=== PATIENT | male | born 1950 | race Caucasian/White ===

== ENCOUNTER → 2017-01-21 | Outpatient (CLI) | payer OTHER ==
[~2017-01-21] MED LIST: ACET-709 PO; AMOX1TAB64 PO; ASPI-515 PO; FAMO20TA7 PO; HYDR2TAB29 PO; Lopressor PO; METO25TA35 PO; METO25TA91 PO; METR500T PO; OMNIPAQUE 350 MG/ML, 100ML BOTTLE ONE; ONDA4TAB10 PO; ONDA4TAB7 PO; OXYC5CAP2 PO; OXYC5TAB3 PO; PREDNISONE EYE; RIVA20TA PO; TOBR5DRO2 EACHEYE
== END | disposition home or self-care (01) ==
LOC: CFH 09:02
PROVIDERS: ATTEND Surgery
DX: J44.9 Chronic obstructive pulmonary disease, unspecified (principal); I25.10 Atherosclerotic heart disease of native coronary artery without angina pectoris; C18.0 Malignant neoplasm of cecum; K76.89 Other specified diseases of liver; D17.9 Benign lipomatous neoplasm, unspecified
CPT/HCPCS: 71260; 74177; Q9967

== ENCOUNTER → 2017-06-17 | Outpatient (CLI) | payer OTHER ==
[~2017-06-17] MED LIST changes: -OMNIPAQUE 350 MG/ML, 100ML BOTTLE ONE; +REGADENOSON 0.4 MG/5 ML SYRINGE ONE
== END ==
LOC: CFH 07:39
PROVIDERS: ATTEND Nurse Practitioner Family
DX: I21.29 ST elevation (STEMI) myocardial infarction involving other sites (principal); I48.0 Paroxysmal atrial fibrillation
CPT/HCPCS: 78452; 93017; A9502; J2785

== ENCOUNTER 2017-07-08 07:26 | Day surgery (SDC) | payer OTHER ==
[~2017-07-08] VITALS: Ht 188 cm; Wt 98.2 kg
[~2017-07-08 07:26] MED LIST changes: -REGADENOSON 0.4 MG/5 ML SYRINGE ONE
[2017-07-08 08:14] VITALS: BP 133/91
[2017-07-08] MEDS ORDERED: DIGO125T PO (08:18)
[2017-07-08] MEDS ORDERED: VERAPAMIL 2.5 MG/ML, 2ML ONE (09:38)
[2017-07-08] MEDS ORDERED: MIDAZOLAM 1 MG/ML, 5ML ONE (09:38)
[2017-07-08] MEDS ORDERED: TICAGRELOR 90 MG TABLET ONE (09:38)
[2017-07-08] MEDS ORDERED: FENTANYL PF 100 MCG/2ML ONE (09:38)
[2017-07-08] MEDS ORDERED: BIVALIRUDIN 250 MG ONE (09:38)
[2017-07-08] MEDS ORDERED: LIDOCAINE 2%, 2ML ONE (09:39)
[2017-07-08] MEDS ORDERED: HEPARIN 1,000 UNITS/ML, 10ML ONE (09:39)
== END 2017-07-08 14:00 ==
LOC: CACL 07:26
PROVIDERS: ATTEND Internal Medicine Cardiovascular Disease
DX: I25.10 Atherosclerotic heart disease of native coronary artery without angina pectoris (principal)
CPT/HCPCS: 93458; 99156; 99157; C1894; J1644; J2250; J3010; J3490; Q9967; J0583

== ENCOUNTER 2018-10-30 07:44 | Outpatient (CLI) | payer OTHER ==
[~2018-10-30 07:44] MED LIST changes: +DIGO125T PO
== END 2018-10-30 23:59 | disposition home or self-care (01) ==
LOC: CVU 07:44
PROVIDERS: ATTEND Internal Medicine Cardiovascular Disease
DX: I08.8 Other rheumatic multiple valve diseases (principal); I48.91 Unspecified atrial fibrillation; Z95.0 Presence of cardiac pacemaker
CPT/HCPCS: 0399T; 93306

== ENCOUNTER 2019-07-19 10:24 | Day surgery (SDC) | payer OTHER ==
[~2019-07-19] VITALS: Ht 188 cm; Wt 95.0 kg
[~2019-07-19 10:24] MED LIST changes: -DIGO125T PO; +DIGO125T85 PO
[2019-07-19] MEDS ORDERED: DRON400T PO (10:50)
[2019-07-19] MEDS ORDERED: SODIUM CHLORIDE 0.9% 1,000 ML IV ONE (11:00)
[2019-07-19] MEDS ORDERED: PROPOFOL 10 MG/ML, 20ML ONE (12:38)
== END 2019-07-19 14:06 | disposition home or self-care (01) ==
LOC: CACL 10:24
PROVIDERS: ATTEND Internal Medicine Cardiovascular Disease
DX: I34.0 Nonrheumatic mitral (valve) insufficiency (principal); I48.0 Paroxysmal atrial fibrillation; Z79.82 Long term (current) use of aspirin; Z79.899 Other long term (current) drug therapy; Z95.0 Presence of cardiac pacemaker
CPT/HCPCS: 93312; 93321; 93325; J2704; U0001

== ENCOUNTER → 2020-01-02 | Outpatient (CLI) | payer OTHER ==
[~2020-01-02] MED LIST changes: +DRON400T PO
== END | disposition home or self-care (01) ==
LOC: CFH 15:45
PROVIDERS: ATTEND Nurse Practitioner Family
DX: I08.3 Combined rheumatic disorders of mitral, aortic and tricuspid valves (principal)
CPT/HCPCS: 93306

== ENCOUNTER 2020-01-24 09:07 | Inpatient (IN) | payer OTHER, MEDICARE ==
[~2020-01-24] VITALS: Ht 188 cm; Wt 97.0 kg
--- NOTE | 2020-01-24 10:13 | NUR ---
LLQ ABD PAIN SINCE YESTERDAY WITH HX OF MULTIPLE ABDOMINAL SURGERIES FOR PERFORATIONS AND TUMORS. LAST BM YESTERDAY AND WAS NORMAL. Unable to have bm this Am
[2020-01-24] MEDS ORDERED: PRED5DRO20 OP (10:19)
[2020-01-24 10:21] LABS: BASOPHILS % (AUTO) 0 % (0-1); EOSINOPHILS % (AUTO) 0 % (1-7); LYMPHOCYTES % (AUTO) 4 % (22-44); MEAN CORPUSCULAR HEMOGLOBIN 31.5 pg (27.5-34.5); MEAN CORPUSCULAR HGB CONC 34.1 g/dL (33.2-36.2); MEAN PLATELET VOLUME 8.3 fL (7.4-10.4); MONOCYTES % (AUTO) 3 % (2-9); NEUTROPHILS % (AUTO) 93 % (42-75); PLATELET COUNT 160 x10^3/uL (130-400); RED BLOOD COUNT 5.46 x10^6/uL (4.38-5.82); RED CELL DISTRIBUTION WIDTH 13.1 % (9.4-14.8)
[2020-01-24 10:27] LABS: MD NO
[2020-01-24] MEDS ORDERED: HYDROmorphone 2 MG/ML, 1ML IVPush PRN (10:30)
[2020-01-24] MEDS ORDERED: SODIUM CHLORIDE FLUSH 10ML SYR IVF ONE (10:30)
[2020-01-24] MEDS ORDERED: ONDANSETRON 2MG/ML, 2ML IVPush ONE (10:30)
[2020-01-24] MEDS ORDERED: ONDANSETRON 2MG/ML, 2ML ONE (10:37)
[2020-01-24] MEDS ORDERED: HYDROmorphone 1 MG/ML, 1ML INJ ONE (10:37)
[2020-01-24 10:40] LABS: ANION GAP 6 mmol/L (5-15); CALCIUM 9.7 mg/dL (8.5-10.1); CHLORIDE 105 mmol/L (98-107)
[2020-01-24 10:41] LABS: ALANINE AMINOTRANSFERASE 34 U/L (12-78); ALBUMIN 4.2 g/dL (3.4-5.0); ALKALINE PHOSPHATASE 86 U/L (45-117); BILIRUBIN,TOTAL 1.1 mg/dL (0.2-1.0); CREATININE 1.28 mg/dL (0.7-1.3); TOTAL PROTEIN 7.5 g/dL (6.4-8.2)
--- NOTE | 2020-01-24 10:42 | NUR ---
piv placed-then medicated per emar for nausea/pain at 08/14 placed on 2l nc as precaution d/t narcotics
--- NOTE | 2020-01-24 10:55 | NUR ---
RECEIVED REPORT FROM TY ARRIETA. ASSUMING CARE AT THIS TIME.
--- NOTE | 2020-01-24 10:56 | NUR ---
REPORT TO CHRISTY ARRIETA
[2020-01-24 11:12] LABS: MICROSCOPIC AUTO
--- NOTE | 2020-01-24 11:57 | NUR ---
MEDS ADMIN PER MAY.
[2020-01-24] MEDS ORDERED: LACTATED RINGERS 1,000 ML IV SCH (12:00)
[2020-01-24] MEDS ORDERED: OMNIPAQUE 350 MG/ML, 100ML BOTTLE ONE (12:02)
--- NOTE | 2020-01-24 12:23 | NUR ---
NG TUBE PLACED IN RIGHT NARE. PT TOLERATED WELL. CONNECTED TO LOW CONTINUOUS SUCTION. VERIFIED BY AUSCULATION,.
--- NOTE | 2020-01-24 12:48 | NUR ---
NO GASTRIC CONTENT HAS BEEN SUCTIONED FROM NG TUBE. HOSPITALIST AT BEDSIDE. VO RECEIVED FOR ABD XRAY TO VERIFY PLACEMENT. REPORT GIVEN TO CHRISTY ARRIETA.
[2020-01-24 13:49] VITALS: BP 137/83
[2020-01-24] MEDS ORDERED: BISACODYL 10 MG SUPP PR PRN (14:30)
[2020-01-24] MEDS ORDERED: POLYETHYLENE GLYCOL 17 GM PACKET PO PRN (14:30)
[2020-01-24] MEDS: LACTATED RINGERS 1,000 ML IV SCH (14:35)
[2020-01-24] MEDS: morphine SULFATE 10 MG/ML, 1ML IVPush PRN ×3 (14:36→21:14)
[2020-01-24] MEDS: ONDANSETRON 2MG/ML, 2ML IVPush PRN (14:36)
[2020-01-24] MEDS: DRONEDARONE 400MG TABLET PO SCH (17:24)
[2020-01-24 19:06] VITALS: BP 131/87
[2020-01-24] MEDS: METOPROLOL TARTRATE 50 MG TAB PO SCH (21:08)
[2020-01-24] MEDS: METOCLOPRAMIDE 5 MG/ML, 2ML IVPush PRN (21:14)
[2020-01-25 00:38] VITALS: BP 137/91
[2020-01-25] MEDS: ONDANSETRON 2MG/ML, 2ML IVPush PRN (00:51)
[2020-01-25] MEDS: morphine SULFATE 10 MG/ML, 1ML IVPush PRN ×2 (00:51→03:59)
[2020-01-25] MEDS: METOCLOPRAMIDE 5 MG/ML, 2ML IVPush PRN (03:59)
[2020-01-25] MEDS: LACTATED RINGERS 1,000 ML IV SCH (05:12)
[2020-01-25] MEDS ORDERED: FENTANYL PF 250 MCG/5ML ONE (07:05)
[2020-01-25] MEDS ORDERED: MIDAZOLAM 1 MG/ML, 2ML ONE (07:05)
[2020-01-25] MEDS ORDERED: SCOPOLAMINE 1MG PATCH TD ONE (07:18)
[2020-01-25] MEDS ORDERED: KETOROLAC 30 MG/1 ML IV PRN (08:00)
[2020-01-25] MEDS ORDERED: ONDANSETRON 2MG/ML, 2ML IVPush PRN (08:00)
[2020-01-25] MEDS ORDERED: PROMETHAZINE 25 MG/ML, 1ML IV PRN (08:00)
[2020-01-25] MEDS ORDERED: LABETALOL 5MG/ML, 20ML IV PRN (08:00)
[2020-01-25] MEDS ORDERED: DIAZEPAM 5 MG/ML, 2ML IV PRN ×2 (08:00)
[2020-01-25] MEDS ORDERED: HYDROmorphone 1 MG/ML, 1ML INJ IV PRN (08:00)
[2020-01-25] MEDS ORDERED: hydrALAzine 20 MG/ML, 1ML IV PRN (08:00)
[2020-01-25] MEDS ORDERED: METOCLOPRAMIDE 5 MG/ML, 2ML IV PRN (08:00)
[2020-01-25] MEDS: DRONEDARONE 400MG TABLET PO SCH ×2 (08:00→17:01)
[2020-01-25] MEDS ORDERED: ALBUTEROL SULFATE 2.5 MG/3 ML NPPB PRN (08:00)
[2020-01-25] MEDS ORDERED: OXYcodone 5 MG/5 ML ORAL.SOL UDC PO PRN (08:00)
[2020-01-25] MEDS ORDERED: MEPERIDINE/PF 25MG/0.5ML IVPush PRN (08:00)
[2020-01-25] MEDS ORDERED: FENTANYL PF 100 MCG/2ML ONE (08:48)
[2020-01-25] MEDS: FENTANYL PF 100 MCG/2ML IV PRN ×2 (08:49→08:57)
[2020-01-25] MEDS: METOPROLOL TARTRATE 50 MG TAB PO SCH ×2 (09:00→21:16)
[2020-01-25] MEDS: SENNA/DOCUSATE TABLET PO SCH (09:00)
[2020-01-25] MEDS: predniSOLONE OPHTH. 1%,1ML OP SCH (09:00)
[2020-01-25] MEDS: POTASSIUM CHLORIDE 20 MEQ in D5%-0.45% NACL 1,000 ML IV SCH ×2 (12:27→21:17)
[2020-01-25 12:30] VITALS: BP 116/64
[2020-01-25 12:34] LABS: ALANINE AMINOTRANSFERASE 22 U/L (12-78); ANION GAP 4 mmol/L (5-15); CALCIUM 8.6 mg/dL (8.5-10.1); CHLORIDE 109 mmol/L (98-107); CREATININE 1.08 mg/dL (0.7-1.3)
[2020-01-25 12:36] LABS: ALKALINE PHOSPHATASE 62 U/L (45-117); BILIRUBIN,TOTAL 0.8 mg/dL (0.2-1.0); TOTAL PROTEIN 5.6 g/dL (6.4-8.2)
[2020-01-25 13:07] LABS: BASOPHILS % (AUTO) 1 % (0-1); EOSINOPHILS % (AUTO) 1 % (1-7); LYMPHOCYTES % (AUTO) 9 % (22-44); MEAN CORPUSCULAR HEMOGLOBIN 31.5 pg (27.5-34.5); MEAN CORPUSCULAR HGB CONC 33.7 g/dL (33.2-36.2); MEAN PLATELET VOLUME 8.9 fL (7.4-10.4); MONOCYTES % (AUTO) 9 % (2-9); NEUTROPHILS % (AUTO) 81 % (42-75); PLATELET COUNT 130 x10^3/uL (130-400); RED CELL DISTRIBUTION WIDTH 13.2 % (9.4-14.8)
[2020-01-25 13:08] LABS: MD NO
[2020-01-25] MEDS: morphine SULFATE 10 MG/ML, 1ML IV PRN ×4 (14:38→23:11)
[2020-01-25] MEDS ORDERED: SUGAMMADEX 200 MG/2 ML IVPush ONE (16:32)
[2020-01-25] MEDS ORDERED: KETOROLAC 30 MG/1 ML ONE (16:32)
[2020-01-25] MEDS ORDERED: ROCURONIUM 10MG/ML,5ML ONE (16:32)
[2020-01-25] MEDS ORDERED: PROPOFOL 10 MG/ML, 20ML ONE (16:32)
[2020-01-25] MEDS ORDERED: CEFAZOLIN 1,000 MG ONE (16:32)
[2020-01-25] MEDS ORDERED: SUCCINYLCHOLINE 20 MG/ML, 10ML ONE (16:32)
[2020-01-25] MEDS ORDERED: DEXAMETHASONE 4 MG/ML, 1ML ONE (16:32)
[2020-01-25] MEDS ORDERED: ONDANSETRON 2MG/ML, 2ML ONE (16:32)
[2020-01-25] MEDS: ENOXAPARIN 40 MG/0.4 ML SQ SCH (18:15)
[2020-01-25 18:49] VITALS: BP 103/68
[2020-01-25] MEDS: CEFOTETAN PMX 1GM/50ML 50 ML IVPB SCH (21:49)
[2020-01-26 00:15] VITALS: BP 99/67
[2020-01-26 04:34] VITALS: BP 101/69
[2020-01-26] MEDS: POTASSIUM CHLORIDE 20 MEQ in D5%-0.45% NACL 1,000 ML IV SCH (05:25)
[2020-01-26] MEDS: morphine SULFATE 10 MG/ML, 1ML IV PRN ×3 (05:25→16:03)
[2020-01-26 05:54] LABS: BASOPHILS % (AUTO) 1 % (0-1); EOSINOPHILS % (AUTO) 0 % (1-7); LYMPHOCYTES % (AUTO) 11 % (22-44); MEAN CORPUSCULAR HEMOGLOBIN 31.9 pg (27.5-34.5); MEAN CORPUSCULAR HGB CONC 33.8 g/dL (33.2-36.2); MEAN PLATELET VOLUME 8.3 fL (7.4-10.4); MONOCYTES % (AUTO) 11 % (2-9); NEUTROPHILS % (AUTO) 77 % (42-75); PLATELET COUNT 142 x10^3/uL (130-400); RED BLOOD COUNT 4.86 x10^6/uL (4.38-5.82); RED CELL DISTRIBUTION WIDTH 13.2 % (9.4-14.8)
[2020-01-26 05:55] LABS: MD NO
[2020-01-26 06:06] LABS: ANION GAP 5 mmol/L (5-15); CALCIUM 8.6 mg/dL (8.5-10.1); CHLORIDE 107 mmol/L (98-107)
[2020-01-26 06:12] LABS: ALANINE AMINOTRANSFERASE 18 U/L (12-78); ALKALINE PHOSPHATASE 62 U/L (45-117); BILIRUBIN,TOTAL 1.2 mg/dL (0.2-1.0); CREATININE 1.46 mg/dL (0.7-1.3); TOTAL PROTEIN 6.2 g/dL (6.4-8.2)
[2020-01-26 06:39] VITALS: BP 109/73
[2020-01-26] MEDS: DRONEDARONE 400MG TABLET PO SCH ×2 (09:19→16:04)
[2020-01-26] MEDS: METOPROLOL TARTRATE 50 MG TAB PO SCH ×2 (09:19→19:54)
[2020-01-26] MEDS: SENNA/DOCUSATE TABLET PO SCH (09:19)
[2020-01-26] MEDS: ASPIRIN 81 MG TABLET CHEW PO SCH (09:19)
[2020-01-26] MEDS: CEFOTETAN PMX 1GM/50ML 50 ML IVPB SCH (09:19)
[2020-01-26] MEDS: predniSOLONE OPHTH. 1%,1ML OP SCH (09:58)
[2020-01-26] MEDS: D5%-0.45% NACL 1,000 ML IV SCH (11:34)
[2020-01-26 14:32] VITALS: BP 106/64
[2020-01-26 19:42] VITALS: BP 104/73
[2020-01-26] MEDS: ENOXAPARIN 40 MG/0.4 ML SQ SCH (19:53)
[2020-01-26] MEDS: OXYcodone/APAP 5/325MG TABLET PO PRN (19:54)
[2020-01-27] MEDS: morphine SULFATE 10 MG/ML, 1ML IV PRN (00:11)
[2020-01-27] MEDS: ONDANSETRON 2MG/ML, 2ML IV PRN ×3 (02:07→20:02)
[2020-01-27] MEDS: OXYcodone/APAP 5/325MG TABLET PO PRN ×3 (02:18→20:01)
[2020-01-27] MEDS: D5%-0.45% NACL 1,000 ML IV SCH (02:18)
[2020-01-27 02:22] VITALS: BP 144/74
[2020-01-27 06:08] LABS: MEAN CORPUSCULAR HEMOGLOBIN 31.7 pg (27.5-34.5); MEAN CORPUSCULAR HGB CONC 33.7 g/dL (33.2-36.2); MEAN PLATELET VOLUME 8.4 fL (7.4-10.4); PLATELET COUNT 126 x10^3/uL (130-400); RED BLOOD COUNT 4.52 x10^6/uL (4.38-5.82); RED CELL DISTRIBUTION WIDTH 13.2 % (9.4-14.8)
[2020-01-27 06:16] LABS: ANION GAP 3 mmol/L (5-15); CALCIUM 8.8 mg/dL (8.5-10.1); CHLORIDE 105 mmol/L (98-107)
[2020-01-27 06:17] LABS: CREATININE 1.36 mg/dL (0.7-1.3)
[2020-01-27 06:51] LABS: MD YES
[2020-01-27 06:55] LABS: EOS#(MANUAL) 0.03 x10^3/uL (0.0-0.4); EOS% (MANUAL) 2 % (1-7); REACTIVE LYMPHS # (MANUAL) 0.03 x10^3/uL (0-0); REACTIVE LYMPHS % (MANUAL) 2 % (0-0)
[2020-01-27 06:58] LABS: BAND#(MANUAL) 0.69 x10^3/uL; BANDS%(MANUAL) 53 % (0-7); LYMPH#(MANUAL) 0.13 x10^3/uL (1-3.4); LYMPHS% (MANUAL) 10 % (22-44); MONOS#(MANUAL) 0.17 x10^3/uL (0.3-2.7); MONOS% (MANUAL) 13 % (2-9); SEG#(MANUAL) 0.26 x10^3/uL (1.8-6.8); SEGS% (MANUAL) 20 % (42-75)
[2020-01-27 07:00] LABS: <RBC MORPHOLOGY> NORMAL
[2020-01-27 07:01] LABS: <PLATELET ESTIMATE> DECREASED; <PLT MORPHOLOGY> NORMAL PLT MORPH
[2020-01-27 07:41] VITALS: BP 107/59
[2020-01-27] MEDS: ASPIRIN 81 MG TABLET CHEW PO SCH (08:05)
[2020-01-27] MEDS: METOPROLOL TARTRATE 50 MG TAB PO SCH ×2 (08:05→20:01)
[2020-01-27] MEDS: SENNA/DOCUSATE TABLET PO SCH (08:05)
[2020-01-27] MEDS: predniSOLONE OPHTH. 1%,1ML OP SCH (08:05)
[2020-01-27] MEDS: DRONEDARONE 400MG TABLET PO SCH ×2 (08:14→17:10)
[2020-01-27] MEDS ORDERED: PHARMACY MAY ADJ FOR RENAL FX MC PRN (09:00)
[2020-01-27] MEDS: METRONIDAZOLE PMX 500MG/100ML 100 ML IV SCH ×2 (09:30→17:10)
[2020-01-27] MEDS: SODIUM CHLORIDE 0.9% 1,000 ML IV SCH ×2 (09:31→20:02)
[2020-01-27] MEDS: CEFTRIAXONE PMX 1GM/50ML 50 ML IV SCH (10:37)
[2020-01-27] MEDS: METOCLOPRAMIDE 5 MG/ML, 2ML IVPush PRN ×2 (12:04→23:52)
[2020-01-27 14:04] VITALS: BP 105/76
[2020-01-27 19:54] VITALS: BP 126/77
[2020-01-27] MEDS: ENOXAPARIN 40 MG/0.4 ML SQ SCH (20:02)
[2020-01-28] MEDS: METRONIDAZOLE PMX 500MG/100ML 100 ML IV SCH ×4 (01:01→21:45)
[2020-01-28 01:09] VITALS: BP 143/89
[2020-01-28] MEDS: SODIUM CHLORIDE 0.9% 1,000 ML IV SCH ×2 (06:04→16:31)
[2020-01-28] MEDS: ONDANSETRON 2MG/ML, 2ML IV PRN ×3 (06:04→21:37)
[2020-01-28 06:54] LABS: CHLORIDE 103 mmol/L (98-107)
[2020-01-28 06:59] LABS: ALANINE AMINOTRANSFERASE 21 U/L (12-78); ALBUMIN 2.4 g/dL (3.4-5.0); ALKALINE PHOSPHATASE 52 U/L (45-117); ANION GAP 3 mmol/L (5-15); BILIRUBIN,TOTAL 0.9 mg/dL (0.2-1.0); CALCIUM 8.3 mg/dL (8.5-10.1); CREATININE 0.88 mg/dL (0.7-1.3); TOTAL PROTEIN 5.8 g/dL (6.4-8.2)
[2020-01-28 07:46] VITALS: BP 129/84
[2020-01-28] MEDS: SENNA/DOCUSATE TABLET PO SCH (10:33)
[2020-01-28] MEDS: METOCLOPRAMIDE 5 MG/ML, 2ML IVPush PRN ×2 (10:33→16:27)
[2020-01-28] MEDS: ASPIRIN 81 MG TABLET CHEW PO SCH (10:33)
[2020-01-28] MEDS: DRONEDARONE 400MG TABLET PO SCH ×2 (10:33→16:26)
[2020-01-28] MEDS: predniSOLONE OPHTH. 1%,1ML OP SCH (10:34)
[2020-01-28] MEDS: METOPROLOL TARTRATE 50 MG TAB PO SCH ×2 (10:34→21:00)
[2020-01-28 11:02] LABS: MEAN CORPUSCULAR HEMOGLOBIN 31.6 pg (27.5-34.5); MEAN CORPUSCULAR HGB CONC 33.7 g/dL (33.2-36.2); MEAN PLATELET VOLUME 9.1 fL (7.4-10.4); PLATELET COUNT 146 x10^3/uL (130-400); RED BLOOD COUNT 4.35 x10^6/uL (4.38-5.82); RED CELL DISTRIBUTION WIDTH 12.9 % (9.4-14.8)
[2020-01-28 11:03] LABS: MD YES
[2020-01-28 11:09] LABS: BAND#(MANUAL) 0.93 x10^3/uL; BANDS%(MANUAL) 49 % (0-7); EOS#(MANUAL) 0.08 x10^3/uL (0.0-0.4); EOS% (MANUAL) 4 % (1-7); LYMPH#(MANUAL) 0.29 x10^3/uL (1-3.4); LYMPHS% (MANUAL) 15 % (22-44); METAMYELOCYTES# (MANUAL) 0.08 x10^3/uL (0-0); METAMYELOCYTES% (MANUAL) 4 % (0-1); MONOS#(MANUAL) 0.25 x10^3/uL (0.3-2.7); MONOS% (MANUAL) 13 % (2-9); MYELOCYTES# (MANUAL) 0.02 x10^3/uL (0-0); MYELOCYTES% (MANUAL) 1 % (0-0); SEG#(MANUAL) 0.27 x10^3/uL (1.8-6.8); SEGS% (MANUAL) 14 % (42-75)
[2020-01-28 11:10] LABS: <PLATELET ESTIMATE> ADEQUATE; <PLT MORPHOLOGY> NORMAL PLT MORPH; <RBC MORPHOLOGY> NORMAL
[2020-01-28] MEDS: CEFTRIAXONE PMX 1GM/50ML 50 ML IV SCH (13:28)
[2020-01-28] MEDS: PROMETHAZINE 25 MG/ML, 1ML IM PRN ×2 (13:28→22:27)
[2020-01-28 13:53] VITALS: BP 146/83
[2020-01-28] MEDS: CALCIUM CARBONATE 500 MG TAB.CHEW PO PRN (16:26)
[2020-01-28] MEDS: OXYcodone/APAP 5/325MG TABLET PO PRN (16:27)
[2020-01-28 20:24] VITALS: BP 137/83
[2020-01-28] MEDS: MELATONIN 5 MG TABLET PO PRN (21:44)
[2020-01-28] MEDS: ENOXAPARIN 40 MG/0.4 ML SQ SCH (21:46)
[2020-01-29] MEDS: METOCLOPRAMIDE 5 MG/ML, 2ML IVPush PRN (00:32)
[2020-01-29 01:50] VITALS: BP 107/59
[2020-01-29] MEDS: ONDANSETRON 2MG/ML, 2ML IV PRN ×3 (03:07→22:12)
[2020-01-29] MEDS: SODIUM CHLORIDE 0.9% 1,000 ML IV SCH ×3 (04:32→22:10)
[2020-01-29 05:38] LABS: ANION GAP 8 mmol/L (5-15); CALCIUM 8.6 mg/dL (8.5-10.1); CHLORIDE 101 mmol/L (98-107); CREATININE 0.78 mg/dL (0.7-1.3)
[2020-01-29 05:40] LABS: MEAN CORPUSCULAR HEMOGLOBIN 31.7 pg (27.5-34.5); MEAN CORPUSCULAR HGB CONC 34.4 g/dL (33.2-36.2); MEAN PLATELET VOLUME 9.1 fL (7.4-10.4); PLATELET COUNT 178 x10^3/uL (130-400); RED BLOOD COUNT 4.57 x10^6/uL (4.38-5.82); RED CELL DISTRIBUTION WIDTH 13.1 % (9.4-14.8)
[2020-01-29] MEDS: METRONIDAZOLE PMX 500MG/100ML 100 ML IV SCH ×3 (05:56→22:10)
[2020-01-29 06:14] VITALS: BP 169/99
[2020-01-29 06:14] LABS: MD YES
[2020-01-29 06:17] LABS: <PLATELET ESTIMATE> ADEQUATE; <PLT MORPHOLOGY> NORMAL PLT MORPH; <RBC MORPHOLOGY> NORMAL; BAND#(MANUAL) 0.65 x10^3/uL; BANDS%(MANUAL) 18 % (0-7); LYMPHS% (MANUAL) 11 % (22-44); METAMYELOCYTES# (MANUAL) 0.04 x10^3/uL (0-0); METAMYELOCYTES% (MANUAL) 1 % (0-1); MONOS#(MANUAL) 0.29 x10^3/uL (0.3-2.7); MONOS% (MANUAL) 8 % (2-9); SEG#(MANUAL) 2.23 x10^3/uL (1.8-6.8); SEGS% (MANUAL) 62 % (42-75)
[2020-01-29] MEDS: OXYcodone/APAP 5/325MG TABLET PO PRN ×2 (09:05→22:12)
[2020-01-29] MEDS: ASPIRIN 81 MG TABLET CHEW PO SCH (09:05)
[2020-01-29] MEDS: SENNA/DOCUSATE TABLET PO SCH (09:05)
[2020-01-29] MEDS: METOPROLOL TARTRATE 50 MG TAB PO SCH ×2 (09:06→22:09)
[2020-01-29] MEDS: DRONEDARONE 400MG TABLET PO SCH ×2 (09:07→17:17)
[2020-01-29] MEDS: predniSOLONE OPHTH. 1%,1ML OP SCH (09:09)
[2020-01-29 10:17] VITALS: BP 148/68
[2020-01-29] MEDS: CALCIUM CARBONATE 500 MG TAB.CHEW PO PRN (12:43)
[2020-01-29] MEDS: CEFTRIAXONE PMX 1GM/50ML 50 ML IV SCH (12:43)
[2020-01-29 13:32] VITALS: BP 155/99
[2020-01-29 19:31] VITALS: BP 149/92
[2020-01-29] MEDS: ENOXAPARIN 40 MG/0.4 ML SQ SCH (22:09)
[2020-01-29] MEDS: DIPHENHYDRAMINE 25 MG CAPSULE PO PRN (22:12)
[2020-01-29] MEDS: MELATONIN 5 MG TABLET PO PRN (22:12)
[2020-01-30 00:57] VITALS: BP 147/108
[2020-01-30 01:07] VITALS: BP 160/97
[2020-01-30] MEDS: CALCIUM CARBONATE 500 MG TAB.CHEW PO PRN ×3 (03:00→20:47)
[2020-01-30 06:00] LABS: MEAN CORPUSCULAR HEMOGLOBIN 31.1 pg (27.5-34.5); MEAN CORPUSCULAR HGB CONC 33.4 g/dL (33.2-36.2); MEAN PLATELET VOLUME 8.5 fL (7.4-10.4); PLATELET COUNT 190 x10^3/uL (130-400); RED BLOOD COUNT 4.69 x10^6/uL (4.38-5.82); RED CELL DISTRIBUTION WIDTH 13.2 % (9.4-14.8)
[2020-01-30] MEDS: METRONIDAZOLE PMX 500MG/100ML 100 ML IV SCH ×3 (06:05→22:27)
[2020-01-30 06:11] LABS: ANION GAP 8 mmol/L (5-15); CALCIUM 8.6 mg/dL (8.5-10.1); CHLORIDE 102 mmol/L (98-107); CREATININE 0.92 mg/dL (0.7-1.3)
[2020-01-30 06:22] LABS: BAND#(MANUAL) 1.15 x10^3/uL; BANDS%(MANUAL) 31 % (0-7); LYMPH#(MANUAL) 0.44 x10^3/uL (1-3.4); LYMPHS% (MANUAL) 12 % (22-44); MD YES; MONOS#(MANUAL) 0.52 x10^3/uL (0.3-2.7); MONOS% (MANUAL) 14 % (2-9); SEG#(MANUAL) 1.52 x10^3/uL (1.8-6.8); SEGS% (MANUAL) 41 % (42-75)
[2020-01-30 06:23] LABS: <PLATELET ESTIMATE> ADEQUATE; <PLT MORPHOLOGY> NORMAL PLT MORPH; <RBC MORPHOLOGY> NORMAL; BASOS#(MANUAL) 0.04 x10^3/uL (0-0.1); BASOS% (MANUAL) 1 % (0-1); METAMYELOCYTES# (MANUAL) 0.04 x10^3/uL (0-0); METAMYELOCYTES% (MANUAL) 1 % (0-1)
[2020-01-30] MEDS: NS + 20MEQ KCL 1,000 ML IV SCH (07:30)
[2020-01-30 07:40] VITALS: BP 145/99
[2020-01-30 08:00] VITALS: BP 145/99
[2020-01-30] MEDS: DRONEDARONE 400MG TABLET PO SCH ×2 (08:00→16:04)
[2020-01-30] MEDS: predniSOLONE OPHTH. 1%,1ML OP SCH (09:00)
[2020-01-30] MEDS: SENNA/DOCUSATE TABLET PO SCH (09:00)
[2020-01-30] MEDS: ASPIRIN 81 MG TABLET CHEW PO SCH (09:00)
[2020-01-30] MEDS: METOPROLOL TARTRATE 50 MG TAB PO SCH ×2 (09:00→20:47)
[2020-01-30 14:00] VITALS: BP 150/99
[2020-01-30] MEDS: CEFTRIAXONE PMX 1GM/50ML 50 ML IV SCH (14:00)
[2020-01-30] MEDS: OXYcodone/APAP 5/325MG TABLET PO PRN ×2 (16:10→22:27)
[2020-01-30 19:02] VITALS: BP 144/104
[2020-01-30] MEDS: ENOXAPARIN 40 MG/0.4 ML SQ SCH (20:48)
[2020-01-30] MEDS: DIPHENHYDRAMINE 25 MG CAPSULE PO PRN (20:48)
[2020-01-30] MEDS: ONDANSETRON 2MG/ML, 2ML IV PRN (20:57)
[2020-01-30] MEDS: morphine SULFATE 10 MG/ML, 1ML IV PRN (20:59)
[2020-01-31] MEDS: NS + 20MEQ KCL 1,000 ML IV SCH ×2 (00:14→14:04)
[2020-01-31 00:38] VITALS: BP 154/102
[2020-01-31] MEDS: OXYcodone/APAP 5/325MG TABLET PO PRN ×2 (05:17→22:58)
[2020-01-31 05:37] LABS: BASOPHILS % (AUTO) 0 % (0-1); EOSINOPHILS % (AUTO) 1 % (1-7); LYMPHOCYTES % (AUTO) 10 % (22-44); MEAN CORPUSCULAR HEMOGLOBIN 31.5 pg (27.5-34.5); MEAN PLATELET VOLUME 8.5 fL (7.4-10.4); MONOCYTES % (AUTO) 12 % (2-9); NEUTROPHILS % (AUTO) 77 % (42-75); PLATELET COUNT 216 x10^3/uL (130-400); RED BLOOD COUNT 4.79 x10^6/uL (4.38-5.82); RED CELL DISTRIBUTION WIDTH 13.2 % (9.4-14.8)
[2020-01-31 05:39] LABS: MD NO
[2020-01-31 05:43] LABS: ANION GAP 6 mmol/L (5-15); CALCIUM 8.3 mg/dL (8.5-10.1); CHLORIDE 102 mmol/L (98-107); CREATININE 0.85 mg/dL (0.7-1.3)
[2020-01-31] MEDS: METRONIDAZOLE PMX 500MG/100ML 100 ML IV SCH ×3 (06:30→22:56)
[2020-01-31 07:04] VITALS: BP 150/85
[2020-01-31] MEDS: predniSOLONE OPHTH. 1%,1ML OP SCH (09:14)
[2020-01-31] MEDS: SENNA/DOCUSATE TABLET PO SCH (09:15)
[2020-01-31] MEDS: METOPROLOL TARTRATE 50 MG TAB PO SCH ×2 (09:15→22:58)
[2020-01-31] MEDS: ASPIRIN 81 MG TABLET CHEW PO SCH (09:15)
[2020-01-31] MEDS: DRONEDARONE 400MG TABLET PO SCH ×2 (09:15→16:51)
[2020-01-31] MEDS: CEFTRIAXONE PMX 1GM/50ML 50 ML IV SCH (12:30)
[2020-01-31 12:37] VITALS: BP 137/86
[2020-01-31 20:15] VITALS: BP 146/86
[2020-01-31] MEDS: ENOXAPARIN 40 MG/0.4 ML SQ SCH (22:57)
[2020-02-01 02:42] VITALS: BP 159/80
[2020-02-01] MEDS: CALCIUM CARBONATE 500 MG TAB.CHEW PO PRN (02:50)
[2020-02-01] MEDS: METRONIDAZOLE PMX 500MG/100ML 100 ML IV SCH (06:57)
[2020-02-01] MEDS: NS + 20MEQ KCL 1,000 ML IV SCH (06:58)
[2020-02-01 07:58] VITALS: BP 148/82
[2020-02-01] MEDS: predniSOLONE OPHTH. 1%,1ML OP SCH (08:59)
[2020-02-01] MEDS: ASPIRIN 81 MG TABLET CHEW PO SCH (09:00)
[2020-02-01] MEDS: DRONEDARONE 400MG TABLET PO SCH (09:00)
[2020-02-01] MEDS: METOPROLOL TARTRATE 50 MG TAB PO SCH (09:00)
[2020-02-01] MEDS: SENNA/DOCUSATE TABLET PO SCH (09:00)
[2020-02-01] MEDS ORDERED: METR500T PO (11:38)
[2020-02-01] MEDS ORDERED: CEFD300C37 PO (11:38)
[2020-02-01] MEDS ORDERED: POLY17PO5 PO (11:38)
[2020-02-01] MEDS ORDERED: OXYC-302 PO (12:28)
[2020-02-01] MEDS: CEFTRIAXONE PMX 1GM/50ML 50 ML IV SCH (12:31)
[2020-02-01 12:42] VITALS: BP_SYST 118; BP_SYST 148; BP_DIAS 64
[2020-02-01] MEDS ORDERED: LISINOPRIL 10 MG TABLET PO SCH (21:00)
== END 2020-02-01 12:45 | disposition home or self-care (01) | DRG 329 ==
LOC: ED 10:28 → EDIP 12:01 → 3N 13:21 → 4NE 01-25 10:06 → DCLOUNGE 02-01 12:41
PROVIDERS: ADMIT Family Medicine; ATTEND Family Medicine
PROC: 0D1N0Z4 Bypass Sigmoid Colon to Cutaneous, Open Approach (ICD-10-PCS; 2020-01-25)
PROC: 0DBN0ZZ Excision of Sigmoid Colon, Open Approach (ICD-10-PCS; 2020-01-25)
PROC: 0DN80ZZ Release Small Intestine, Open Approach (ICD-10-PCS; 2020-01-25)
PROC: 0DJ00ZZ Inspection of Upper Intestinal Tract, Open Approach (ICD-10-PCS; 2020-01-25)
PROC: 0WUF0JZ Supplement Abdominal Wall with Synthetic Substitute, Open Approach (ICD-10-PCS; principal; 2020-01-25 07:30)
DX: K56.51 Intestinal adhesions [bands], with partial obstruction (principal); J96.01 Acute respiratory failure with hypoxia; J98.11 Atelectasis; D70.9 Neutropenia, unspecified; Z20.828 Contact with and (suspected) exposure to other viral communicable diseases; K56.7 Ileus, unspecified; I10 Essential (primary) hypertension; I48.91 Unspecified atrial fibrillation; K43.2 Incisional hernia without obstruction or gangrene; Z43.3 Encounter for attention to colostomy; Z79.899 Other long term (current) drug therapy; Z79.82 Long term (current) use of aspirin; Z79.01 Long term (current) use of anticoagulants; Z88.5 Allergy status to narcotic agent
CPT/HCPCS: 36415; 71045; 74018; 74177; 80048; 80053; 81001; 83690; 84145; 85025; 87040; 87635; 93005; 96374; 96375; 99285; G0378; J0690; J0696; J1100; J1170; J1650; J1885; J2250; J2405; J2550; J2704; J3010; J3480; Q9967; C1765; J0330; J2270; J2765; J7030; J7120; Q0163